=== PATIENT | male | born 1985 | race Two or more races ===

== ENCOUNTER 2019-10-02 12:12 | Inpatient (IN) | payer OTHER ==
[~2019-10-02] VITALS: Ht 167.6 cm; Wt 58.5 kg
--- NOTE | 2019-10-02 12:18 | Emergency Room Report ---
History of Present Illness General Chief Complaint: g-tube replacement Source: Medical Record, EMS Present Illness HPI Patient is a 34-year-old male brought in from his extended care facility by EMS for G-tube replacement. Per EMS patient ripped out his G-tube this morning. Unable to obtain further history due to the fact that the patient is in a persistent vegetative state. Allergies: Coded Allergies: GENTAMICIN (Verified Allergy, Intermediate, 10/02/19) PENICILLINS (Verified Allergy, Intermediate, 10/02/19) PHENYTOIN (Verified Allergy, Intermediate, 10/02/19) SHELLFISH DERIVED (Verified Allergy, Intermediate, 10/02/19) SULFA (SULFONAMIDE ANTIBIOTICS) (Verified Allergy, Intermediate, 10/02/19) CITRUS AND DERIVATIVES (Verified Allergy, Unknown, 10/02/19) PORK DERIVED (PORCINE) (Verified Allergy, Unknown, 10/02/19) Patient History Reviewed Nursing Documentation: PMH: Agreed; PSxH: Agreed Review of Systems All Other Systems: limited - non-verbal Physical Exam Sp02 EP Interpretation: reviewed, normal General Appearance: Chronically Ill Head: normocephalic, atraumatic Eyes: bilateral eye normal inspection, bilateral eye PERRL ENT: dry mucus membranes Neck: other - Trach in place Respiratory: other Cardiovascular #1: tachycardia Cardiovascular #2: 2+ carotid (R), 2+ carotid (L) Gastrointestinal: other - Catheter in place for PEG tube no abdominal pain on examination Rectal: deferred Musculoskeletal: other - Intractable extremities Psychiatric: other - Verbal unable to assess Skin: no rash Procedures Additional Procedure Procedure Narrative PEG tube replaced using 16 Macedonian G-tube inflated with 20 cc of normal saline x- ray ordered to confirm placement Medical Decision Making Diagnostic Impression: Primary Impression: UTI (urinary tract infection) Additional Impressions: Tachycardia Encounter for feeding tube placement Cardiomegaly Hypernatremia ER Course Patient presents for G-tube replacement. Patient found to be febrile with tachycardia. Patient found to have significant hyponatremia. Patient has been pancultured. Lactic acid is normal. Patient started on broad-spectrum antibiotics for UTI. Feeding tube replaced without any issues. Patient has primary care doctor Dr. Saxena. He states he will be out of town and is requesting the on-call physician to admit. I have discussed this with who will be admitting. Chest X-Ray Diagnostic Results Chest X-Ray Diagnostic Results : Chest X-Ray Ordered: Yes # of Views/Limited/Complete: 1 View Indication: Shortness of Breath EP Interpretation: Yes Interpretation: no consolidation, no effusion, no pneumothorax, other - Cardiomegaly Impression: No acute disease Electronically Signed by: Perla Noyola MD Other X-Ray Diagnostic Results Other X-Ray Diagnostic Results : X-Ray ordered: X-Ray abdomen # of Views/Limited Vs Complete: 1 View Indication: Other - G-tube replacement EP Interpretation: Yes Interpretation: nonspecific bowel gas, no sbo, other - Tube in satisfactory position Impression: No acute disease Electronically Signed by: Perla Noyola MD Disposition: ADMITTED INPATIENT Condition: Critical Physician Consult: Dr. Saxena and Dr. Jackson Scripts Vancomycin In Dextrose,Iso-Osm (VANCOMYCIN 750 MG/150 ML BAG) 750 Mg/150 Ml Froz.piggy 750 MG IVPB Q12H for 7 Days, BAG Prov: Jayden Jackson MD 10/06/19 Additional Instructions: Please note that this report is being documented using [employer] technology. This can lead to erroneous entry secondary to incorrect interpretation by the dictating instrument. Perla Noyola M.D. Oct 02, 2019 12:18
[2019-10-02] MEDS ORDERED: CARBAMAZEP100 MG/5 M GT (12:49)
[2019-10-02] MEDS ORDERED: ALBUTEROL2.5 MG/3 M INH (12:49)
[2019-10-02] MEDS ORDERED: CARDIZEM60 MG GT (12:49)
[2019-10-02] MEDS ORDERED: DOCUSATE SODIU100 MG GT (12:49)
[2019-10-02] MEDS ORDERED: IPRATROPIU0.2 MG/1 M HHN (12:49)
[2019-10-02] MEDS ORDERED: CARAFATE1 G1 GT (12:49)
[2019-10-02] MEDS ORDERED: LEVETIRACETAM500 MG GT (12:49)
[2019-10-02] MEDS ORDERED: LOVENOX10 M4 SUBQ (12:49)
[2019-10-02] MEDS ORDERED: VALPROIC A250 MG/5 M GT (12:49)
[2019-10-02 12:57] VITALS: BP 118/84
[2019-10-02 13:05] LABS: BASOPHILS % (AUTO) 0.9 % (0.0-2.0); EOSINOPHILS % (AUTO) 1.7 % (0.0-3.0); HEMATOCRIT 52.5 % (42.0-52.0); HEMOGLOBIN 16.4 G/DL (14.2-18.0); LYMPHOCYTES % (AUTO) 30.2 % (20.0-45.0); MEAN CORPUSCULAR VOLUME 96 FL (80-99); MONOCYTES % (AUTO) 3.9 % (1.0-10.0); NEUTROPHILS % (AUTO) 63.3 % (45.0-75.0); PLATELET COUNT 193 K/UL (150-450); RED BLOOD COUNT 5.47 M/UL (4.70-6.10); RED CELL DISTRIBUTION WIDTH 12.4 % (11.6-14.8); WHITE BLOOD COUNT 9.7 K/UL (4.8-10.8)
[2019-10-02 13:09] LABS: APPEARANCE,URINE SLIGHTLY CLOUDY; BILIRUBIN, URINE NEGATIVE (NEGATIVE); GLUCOSE, URINE (UA) NEGATIVE (NEGATIVE); KETONES,URINE NEGATIVE (NEGATIVE); LEUKOCYTE ESTERASE ,URINE 1+ (NEGATIVE); NITRITE,URINE NEGATIVE (NEGATIVE); PH,URINE 6.5 (4.5-8.0); PROTEIN,URINE 2+ (NEGATIVE); UROBILINOGEN,URINE 1 MG/DL (0.0-1.0)
[2019-10-02] MEDS ORDERED: Acetaminophen 650mg/20.3ml GT PRN (13:15)
[2019-10-02 13:17] LABS: COLOR,URINE YELLOW
[2019-10-02] MEDS ORDERED: Acetaminophen 650 MG SUPP RECTAL ONE ×2 (13:20→13:30)
[2019-10-02] MEDS ORDERED: Cefepime 2gm ONE (13:22)
[2019-10-02 13:23] LABS: ALANINE AMINOTRANSFERASE 67 U/L (12-78); ALBUMIN 3.2 G/DL (3.4-5.0); ALBUMIN/GLOBULIN RATIO 0.7 (1.0-2.7); ALKALINE PHOSPHATASE 58 U/L (46-116); ANION GAP 9 mmol/L (5-15); ASPARTATE AMINO TRANSFERASE 31 U/L (15-37); BILIRUBIN,TOTAL 0.3 MG/DL (0.2-1.0); BLOOD UREA NITROGEN 35 mg/dL (7-18); CALCIUM 9.5 MG/DL (8.5-10.1); CARBON DIOXIDE 30 MMOL/L (21-32); CHLORIDE 125 MMOL/L (98-107); CREATINE KINASE 72 U/L (26-308); CREATININE 0.6 MG/DL (0.55-1.30); POTASSIUM 4.1 MMOL/L (3.5-5.1)
[2019-10-02] MEDS ORDERED: Cefepime HCl 2 GM in D5W 55 ML IVPB ONE (13:30)
[2019-10-02 13:38] LABS: SODIUM 164 MMOL/L (136-145)
[2019-10-02] MEDS ORDERED: 1/2 NS 1000ml IV ONE (13:45)
--- NOTE | 2019-10-02 13:47 | Diagnostic Imaging Report ---
Indication: Chest pain Technique: One view of the chest Comparison: none Findings: The left hemidiaphragm is elevated. The heart is borderline enlarged. The lungs and pleural spaces are clear Impression: Cardiomegaly. No definite acute process
--- NOTE | 2019-10-02 14:19 | Emergency Room Report ---
History of Present Illness General Chief Complaint: General Complaint Source: Medical Record Present Illness Allergies: Coded Allergies: GENTAMICIN (Verified Allergy, Intermediate, 10/02/19) PENICILLINS (Verified Allergy, Intermediate, 10/02/19) PHENYTOIN (Verified Allergy, Intermediate, 10/02/19) SHELLFISH DERIVED (Verified Allergy, Intermediate, 10/02/19) SULFA (SULFONAMIDE ANTIBIOTICS) (Verified Allergy, Intermediate, 10/02/19) CITRUS AND DERIVATIVES (Verified Allergy, Unknown, 10/02/19) PORK DERIVED (PORCINE) (Verified Allergy, Unknown, 10/02/19) COVID-19 Screening Contact w/high risk pt: No Experienced COVID-19 symptoms?: Yes COVID-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 Nursing Documentation-PMH Hx Hypertension: Yes Hx COPD: Yes Hx Gastrointestinal Problems: Yes - gerd Physical Exam Vital Signs Date Time Temp Pulse Resp B/P (MAP) Pulse Ox O2 Delivery O2 Flow Rate FiO2 10/02/19 12:15 99.5 120 20 118/84 (95) 96 Nasal Cannula 4.0 Sp02 EP Interpretation: reviewed, normal General Appearance: mild distress, Chronically Ill Eyes: bilateral eye normal inspection, bilateral eye PERRL ENT: dry mucus membranes Neck: supple Respiratory: lungs clear, no respiratory distress Cardiovascular #1: tachycardia Cardiovascular #2: 2+ carotid (R), 2+ carotid (L) Gastrointestinal: non tender, other - Guthrie catheter in place of G-tube Rectal: deferred Musculoskeletal: other - Tract. Bilateral upper and lower extremities Skin: no rash Procedures Additional Procedure Procedure Narrative PEG tube replacement using 16 Czech G-tube chest x-ray ordered for placement verification Medical Decision Making Diagnostic Impression: Primary Impression: Hyponatremia Additional Impressions: UTI (urinary tract infection) G tube feedings ER Course Patient's G-tube has been replaced. Patient severely hyponatremic. Patient given IV fluids. Patient also has low-grade temp with UTI. Patient started on cefepime. Patient to be admitted for further treatment and evaluation. Laboratory Tests Test 10/02/19 12:35 White Blood Count 9.7 K/UL (4.8-10.8) Red Blood Count 5.47 M/UL (4.70-6.10) Hemoglobin 16.4 G/DL (14.2-18.0) Hematocrit 52.5 % (42.0-52.0) H Mean Corpuscular Volume 96 FL (80-99) Mean Corpuscular Hemoglobin 30.0 PG (27.0-31.0) Mean Corpuscular Hemoglobin Concent 31.3 G/DL (32.0-36.0) L Red Cell Distribution Width 12.4 % (11.6-14.8) Platelet Count 193 K/UL (150-450) Mean Platelet Volume 11.4 FL (6.5-10.1) H Neutrophils (%) (Auto) 63.3 % (45.0-75.0) Lymphocytes (%) (Auto) 30.2 % (20.0-45.0) Monocytes (%) (Auto) 3.9 % (1.0-10.0) Eosinophils (%) (Auto) 1.7 % (0.0-3.0) Basophils (%) (Auto) 0.9 % (0.0-2.0) Prothrombin Time 11.1 SEC (9.30-11.50) Prothrombin Time INR 1.0 (0.9-1.1) Activated Partial Thromboplast Time 34 SEC (23-33) H Urine Color Yellow Urine Appearance Slightly cloudy Urine pH 6.5 (4.5-8.0) Urine Specific [place] 1.015 (1.005-1.035) Urine Protein 2+ (NEGATIVE) H Urine Glucose (UA) Negative (NEGATIVE) Urine Ketones Negative (NEGATIVE) Urine Blood 4+ (NEGATIVE) H Urine Nitrite Negative (NEGATIVE) Urine Bilirubin Negative (NEGATIVE) Urine Urobilinogen 1 MG/DL (0.0-1.0) H Urine Leukocyte Esterase 1+ (NEGATIVE) H Urine RBC 30-40 /HPF (0 - 0) H Urine WBC 5-10 /HPF (0 - 0) H Urine Squamous Epithelial Cells Occasional /LPF Urine Bacteria Moderate /HPF (NONE) H Urine Mucus Moderate /LPF (NONE/OCC) H Sodium Level 164 MMOL/L (136-145) *H Potassium Level 4.1 MMOL/L (3.5-5.1) Chloride Level 125 MMOL/L (98-107) H Carbon Dioxide Level 30 MMOL/L (21-32) Anion Gap 9 mmol/L (5-15) Blood Urea Nitrogen 35 mg/dL (7-18) H Creatinine 0.6 MG/DL (0.55-1.30) Estimated Glomerular Filtration Rate > 60 mL/min (>60) Glucose Level 122 MG/DL (74-106) H Lactic Acid Level 1.00 mmol/L (0.4-2.0) Calcium Level 9.5 MG/DL (8.5-10.1) Magnesium Level 2.8 MG/DL (1.8-2.4) H Total Bilirubin 0.3 MG/DL (0.2-1.0) Aspartate Amino Transferase (AST) 31 U/L (15-37) Alanine Aminotransferase (ALT) 67 U/L (12-78) Alkaline Phosphatase 58 U/L (46-116) Total Creatine Kinase 72 U/L (26-308) Total Protein 7.7 G/DL (6.4-8.2) Albumin 3.2 G/DL (3.4-5.0) L Globulin 4.5 g/dL Albumin/Globulin Ratio 0.7 (1.0-2.7) L EKG Diagnostic Results EKG Time: 12:39 EP Interpretation: Perla Noyola MD Rate: tachycardiac Rhythm: other - Sinus tachycardia ST Segments: no acute changes ASA given to the pt in ED: No Chest X-Ray Diagnostic Results Chest X-Ray Diagnostic Results : Chest X-Ray Ordered: Yes # of Views/Limited/Complete: 1 View Indication: Other - Cardia EP Interpretation: Yes Interpretation: no consolidation, no effusion, no pneumothorax, no acute cardiopulmonary disease, other - cardiomegaly Impression: No acute disease Electronically Signed by: Perla Noyola MD Last Vital Signs Date Time Temp Pulse Resp B/P (MAP) Pulse Ox O2 Delivery O2 Flow Rate FiO2 10/02/19 12:57 120 20 Nasal Cannula 4.0 10/02/19 12:57 99.5 118/84 96 Disposition: ADMITTED INPATIENT - telemetry Condition: Critical Physician Consult: MD Hemanth Referrals: Omero Saxena MD (PCP) Perla Noyola M.D. Oct 02, 2019 14:19
--- NOTE | 2019-10-02 16:12 | Diagnostic Imaging Report ---
Indication: Status post gastrostomy replacement Technique: Supine view of the abdomen after injection of water-soluble contrast into gastrostomy Comparison: none Findings: Contrast opacifies the stomach. No contrast extravasation is demonstrated. The bowel gas pattern is unremarkable. There is thoracolumbar scoliotic deformity Impression: Satisfactory position of gastrostomy tube
[2019-10-02] MEDS ORDERED: Albuterol ud Inhalation HHN PRN (17:30)
[2019-10-02] MEDS: Valproic Acid 250mg/5ml Liquid GT SCH ×2 (18:00→18:46)
[2019-10-02] MEDS: carBAMazepine 200mg tab GT SCH (18:43)
[2019-10-02] MEDS: Sucralfate 1gm tab GT SCH ×2 (18:43→22:35)
[2019-10-02] MEDS: levETIRAcetam 500mg/5ml Liquid GT SCH (18:43)
[2019-10-02] MEDS: dilTIAZem HCl 60mg tab GT SCH (18:44)
[2019-10-02] MEDS: Docusate 100mg/10ml Liq GT SCH (18:44)
[2019-10-02 20:00] VITALS: BP 137/80
[2019-10-02] MEDS ORDERED: Vancomycin 1.25gm/NS Premix IVPB ONE (20:00)
[2019-10-02] MEDS ORDERED: LORazepam Inj 2mg/ml 1ml IV PRN (21:00)
[2019-10-02] MEDS: Cefepime HCl 1 GM in D5W 55 ML IVPB SCH (22:39)
[2019-10-02 23:13] LABS: BASOPHILS % (AUTO) 0.6 % (0.0-2.0); EOSINOPHILS % (AUTO) 1.6 % (0.0-3.0); HEMATOCRIT 53.2 % (42.0-52.0); HEMOGLOBIN 16.4 G/DL (14.2-18.0); LYMPHOCYTES % (AUTO) 30.2 % (20.0-45.0); MEAN CORPUSCULAR VOLUME 97 FL (80-99); MONOCYTES % (AUTO) 4.3 % (1.0-10.0); NEUTROPHILS % (AUTO) 63.4 % (45.0-75.0); PLATELET COUNT 203 K/UL (150-450); RED BLOOD COUNT 5.47 M/UL (4.70-6.10); RED CELL DISTRIBUTION WIDTH 13.4 % (11.6-14.8); WHITE BLOOD COUNT 9.4 K/UL (4.8-10.8)
[2019-10-02 23:36] VITALS: BP 101/43
[2019-10-03] VITALS: BP 142/91
[2019-10-03] MEDS: dilTIAZem HCl 60mg tab GT SCH ×4 (01:40→18:00)
[2019-10-03 04:00] VITALS: BP 126/82
[2019-10-03 08:00] VITALS: BP 122/80
[2019-10-03] MEDS: Valproic Acid 250mg/5ml Liquid GT SCH ×2 (08:56→20:24)
[2019-10-03] MEDS: levETIRAcetam 500mg/5ml Liquid GT SCH ×2 (08:56→18:26)
[2019-10-03] MEDS: Enoxaparin 40mg Inj SUBQ SCH (08:57)
[2019-10-03] MEDS: Sucralfate 1gm tab GT SCH ×4 (08:58→20:23)
[2019-10-03] MEDS: carBAMazepine 200mg tab GT SCH ×2 (08:59→18:25)
[2019-10-03] MEDS: Docusate 100mg/10ml Liq GT SCH ×2 (09:14→18:00)
[2019-10-03] MEDS: Cefepime HCl 1 GM in D5W 55 ML IVPB SCH ×2 (09:16→20:24)
[2019-10-03] MEDS: Vancomycin 1gm/D5W 275ml IVPB SCH ×4 (09:16→21:56)
[2019-10-03 09:20] LABS: ALANINE AMINOTRANSFERASE 53 U/L (12-78); ALBUMIN 2.8 G/DL (3.4-5.0); ALBUMIN/GLOBULIN RATIO 0.9 (1.0-2.7); ALKALINE PHOSPHATASE 56 U/L (46-116); ANION GAP 11 mmol/L (5-15); ASPARTATE AMINO TRANSFERASE 36 U/L (15-37); BILIRUBIN,TOTAL 0.4 MG/DL (0.2-1.0); BLOOD UREA NITROGEN 31 mg/dL (7-18); CALCIUM 7.5 MG/DL (8.5-10.1); CARBON DIOXIDE 26 MMOL/L (21-32); CHLORIDE 121 MMOL/L (98-107); CREATININE 0.3 MG/DL (0.55-1.30); POTASSIUM 4.2 MMOL/L (3.5-5.1); SODIUM 158 MMOL/L (136-145)
[2019-10-03 12:00] VITALS: BP 114/72
--- NOTE | 2019-10-03 13:15 | History and Physical Report ---
DATE OF ADMISSION: 10/02/2019 HISTORY OF PRESENT ILLNESS: This is a 34-year-old male with a history of persistent vegetative state, who was transferred from a longterm facility after his G-tube was pulled out. It was replaced in the emergency room, but on his labs, he was noted to be significantly dehydrated with a sodium of 164. In light of his significant electrolyte abnormalities, he is now admitted for further evaluation and care. PAST MEDICAL HISTORY: As above. PAST SURGICAL HISTORY: Includes a prior history of a G-tube. CURRENT MEDICATIONS: Reconciled and reviewed. ALLERGIES: Include , penicillin, phenytoin, pork, shellfish, and sulfa. FAMILY HISTORY: Unknown. SOCIAL HISTORY: There is no known history of tobacco, ethanol, or drugs. REVIEW OF SYSTEMS: From the patient is unobtainable, is nonverbal at baseline. PHYSICAL EXAMINATION: VITAL SIGNS: Temperature 97.6, pulse 111, respirations 26, blood pressure 142/91. GENERAL: The patient is a chronically ill-appearing male, in no apparent distress. HEENT: Head is normocephalic, atraumatic. HEART: Regular rate and rhythm. LUNGS: Clear. ABDOMEN: Soft. EXTREMITIES: Without clubbing or cyanosis. LABORATORY DATA: Reviewed. ASSESSMENT: This is an unfortunate 34-year-old male with a history of persistent vegetative state, G-tube, admitted with a dislodged G-tube, now replaced. He will be hydrated aggressively. We will continue on G-tube feeds. We will flush G-tube with water. The patient can be discharged once the electrolyte abnormalities are corrected. Jayden Jackson M.D. DR: KASIE JOB#: [id number] CC:
[2019-10-03 16:00] VITALS: BP 98/56
[2019-10-03 20:00] VITALS: BP 98/61
[2019-10-04] VITALS: BP 96/56
[2019-10-04] MEDS: dilTIAZem HCl 60mg tab GT SCH ×4 (00:50→18:00)
[2019-10-04 04:00] VITALS: BP 95/59
[2019-10-04 08:00] VITALS: BP 106/65
[2019-10-04] MEDS: carBAMazepine 200mg tab GT SCH ×2 (08:31→18:05)
[2019-10-04] MEDS: Sucralfate 1gm tab GT SCH ×4 (08:31→20:12)
[2019-10-04] MEDS: Valproic Acid 250mg/5ml Liquid GT SCH ×2 (08:31→20:12)
[2019-10-04] MEDS: levETIRAcetam 500mg/5ml Liquid GT SCH ×2 (08:31→18:04)
[2019-10-04] MEDS: Docusate 100mg/10ml Liq GT SCH ×2 (08:31→18:04)
[2019-10-04] MEDS: Enoxaparin 40mg Inj SUBQ SCH (08:32)
[2019-10-04] MEDS: Cefepime HCl 1 GM in D5W 55 ML IVPB SCH ×2 (08:33→20:12)
[2019-10-04] MEDS: Vancomycin 1gm/D5W 275ml IVPB SCH ×4 (09:00→21:01)
[2019-10-04 12:00] VITALS: BP 131/77
[2019-10-04 12:07] LABS: ANION GAP 7 mmol/L (5-15); BLOOD UREA NITROGEN 15 mg/dL (7-18); CALCIUM 8.4 MG/DL (8.5-10.1); CARBON DIOXIDE 30 MMOL/L (21-32); CHLORIDE 111 MMOL/L (98-107); CREATININE 0.5 MG/DL (0.55-1.30); POTASSIUM 3.2 MMOL/L (3.5-5.1); SODIUM 148 MMOL/L (136-145)
--- NOTE | 2019-10-04 12:22 | General Progress Note ---
Assessment/Plan Problem List: (1) Sepsis ICD Codes: A41.9 - Sepsis, unspecified organism SNOMED: 93818295 (2) G tube feedings ICD Codes: Z93.1 - Gastrostomy status SNOMED: 177849971, 489010409, 638296055 (3) UTI (urinary tract infection) ICD Codes: N39.0 - Urinary tract infection, site not specified SNOMED: 53368608 Status: stable Assessment/Plan: decrease ivf tube feeds iv abx follow up cultures monitor labs Subjective ROS Limited/Unobtainable: Yes Constitutional: Reports: malaise, weakness HEENT: Reports: no symptoms Cardiovascular: Reports: no symptoms Respiratory: Reports: no symptoms Gastrointestinal/Abdominal: Reports: difficulty swallowing Genitourinary: Reports: no symptoms Neurologic/Psychiatric: Reports: pre-existing deficit Endocrine: Reports: no symptoms Hematologic/Lymphatic: Reports: no symptoms Allergies: Coded Allergies: GENTAMICIN (Verified Allergy, Intermediate, 10/02/19) PENICILLINS (Verified Allergy, Intermediate, 10/02/19) PHENYTOIN (Verified Allergy, Intermediate, 10/02/19) SHELLFISH DERIVED (Verified Allergy, Intermediate, 10/02/19) SULFA (SULFONAMIDE ANTIBIOTICS) (Verified Allergy, Intermediate, 10/02/19) CITRUS AND DERIVATIVES (Verified Allergy, Unknown, 10/02/19) PORK DERIVED (PORCINE) (Verified Allergy, Unknown, 10/02/19) All Systems: reviewed and negative except above Subjective no events. labs improving. tolerating feeds. + ucx and blood cultures. Objective Last 24 Hour Vital Signs Date Time Temp Pulse Resp B/P (MAP) Pulse Ox O2 Delivery O2 Flow Rate FiO2 10/04/19 08:00 106 10/04/19 08:00 98.1 97 22 106/65 (79) 99 10/04/19 05:48 79 95/59 10/04/19 04:00 98.6 79 18 95/59 (71) 95 10/04/19 04:00 108 10/04/19 00:50 86 96/56 10/04/19 00:00 87 10/04/19 00:00 99.9 86 18 96/56 (69) 95 10/03/19 22:00 97.9 10/03/19 21:00 Nasal Cannula 2.0 10/03/19 20:00 100.8 104 22 98/61 (73) 99 10/03/19 20:00 99 10/03/19 19:40 76 18 98 Nasal Cannula 2.0 28 10/03/19 18:55 98.8 10/03/19 18:00 116 98/56 10/03/19 16:00 116 10/03/19 16:00 98.8 104 22 98/56 (70) 95 Intake and Output 10/03/19 10/04/19 19:00 07:00 Intake Total 1645 ml 1680 ml Output Total 600 ml 250 ml Balance 1045 ml 1430 ml Intake Free Water 100 ml IV Total 1445 ml 1330 ml Tube Feeding 200 ml 250 ml Output Urine Total 600 ml 250 ml # Voids 2 # Bowel Movements 1 Laboratory Tests 10/04/19 11:10: Sodium Level 148H, Potassium Level 3.2L, Chloride Level 111H, Carbon Dioxide Level 30, Anion Gap 7, Blood Urea Nitrogen 15, Creatinine 0.5#L, Estimat Glomerular Filtration Rate > 60, Glucose Level 107H, Calcium Level 8.4L, Vancomycin Level Trough [Pending] Height (Feet): 5 Height (Inches): 6.00 Weight (Pounds): 129 General Appearance: WD/WN, confused Cardiovascular: regular rhythm Respiratory/Chest: lungs clear Abdomen: normal bowel sounds, non tender, soft, no organomegaly Edema: no edema noted Arm (L), no edema noted Arm (R), no edema noted Leg (L), no edema noted Leg (R), no edema noted Pedal (L), no edema noted Pedal (R), no edema noted Generalized Neurologic: unresponsive, aphasia Jayden Jackson MD Oct 04, 2019 12:22
[2019-10-04 16:00] VITALS: BP 105/67
[2019-10-04 20:00] VITALS: BP 115/79
[2019-10-05] VITALS: BP 116/62
[2019-10-05] MEDS: dilTIAZem HCl 60mg tab GT SCH ×4 (01:10→17:35)
[2019-10-05 04:00] VITALS: BP 110/78
[2019-10-05 08:00] VITALS: BP 112/80
[2019-10-05] MEDS: carBAMazepine 200mg tab GT SCH ×2 (08:40→17:32)
[2019-10-05] MEDS: Valproic Acid 250mg/5ml Liquid GT SCH ×2 (08:40→20:26)
[2019-10-05] MEDS: levETIRAcetam 500mg/5ml Liquid GT SCH ×2 (08:40→17:32)
[2019-10-05] MEDS: Vancomycin 1gm/D5W 275ml IVPB SCH ×4 (08:40→20:25)
[2019-10-05] MEDS: Enoxaparin 40mg Inj SUBQ SCH (08:41)
[2019-10-05] MEDS: Sucralfate 1gm tab GT SCH ×4 (08:46→20:25)
[2019-10-05] MEDS: Docusate 100mg/10ml Liq GT SCH ×2 (08:46→17:35)
[2019-10-05] MEDS: Cefepime HCl 1 GM in D5W 55 ML IVPB SCH ×2 (09:37→20:28)
--- NOTE | 2019-10-05 09:48 | General Progress Note ---
Assessment/Plan Problem List: (1) Sepsis ICD Codes: A41.9 - Sepsis, unspecified organism SNOMED: 67605596 (2) G tube feedings ICD Codes: Z93.1 - Gastrostomy status SNOMED: 033466573, 972637200, 387919585 (3) UTI (urinary tract infection) ICD Codes: N39.0 - Urinary tract infection, site not specified SNOMED: 10940899 Status: stable Assessment/Plan: ivf tube feeds iv abx follow up cultures monitor labs Subjective ROS Limited/Unobtainable: No Constitutional: Reports: malaise, weakness HEENT: Reports: no symptoms Cardiovascular: Reports: no symptoms Respiratory: Reports: no symptoms Gastrointestinal/Abdominal: Reports: no symptoms Genitourinary: Reports: no symptoms Neurologic/Psychiatric: Reports: pre-existing deficit Endocrine: Reports: no symptoms Hematologic/Lymphatic: Reports: no symptoms Allergies: Coded Allergies: GENTAMICIN (Verified Allergy, Intermediate, 10/02/19) PENICILLINS (Verified Allergy, Intermediate, 10/02/19) PHENYTOIN (Verified Allergy, Intermediate, 10/02/19) SHELLFISH DERIVED (Verified Allergy, Intermediate, 10/02/19) SULFA (SULFONAMIDE ANTIBIOTICS) (Verified Allergy, Intermediate, 10/02/19) CITRUS AND DERIVATIVES (Verified Allergy, Unknown, 10/02/19) PORK DERIVED (PORCINE) (Verified Allergy, Unknown, 10/02/19) All Systems: reviewed and negative except above Subjective no events. labs improving. tolerating feeds. + ucx and blood cultures. Objective Last 24 Hour Vital Signs Date Time Temp Pulse Resp B/P (MAP) Pulse Ox O2 Delivery O2 Flow Rate FiO2 10/05/19 08:00 98.1 107 20 112/80 (91) 96 10/05/19 06:00 76 110/78 10/05/19 04:00 85 10/05/19 04:00 97.5 76 18 110/78 (89) 96 10/05/19 01:10 84 116/62 10/05/19 00:00 96 10/05/19 00:00 99.3 84 18 116/62 (80) 100 10/04/19 21:00 Nasal Cannula 2.0 10/04/19 20:00 98.4 101 18 115/79 (91) 95 10/04/19 20:00 94 10/04/19 18:00 100 105/67 10/04/19 16:00 97.7 92 22 105/67 (80) 97 10/04/19 16:00 100 10/04/19 12:46 100 131/77 10/04/19 12:00 97.7 100 20 131/77 (95) 99 10/04/19 12:00 96 Intake and Output 10/04/19 10/05/19 19:00 07:00 Intake Total 1519.25 ml 1615 ml Output Total 600 ml 300 ml Balance 919.25 ml 1315 ml Intake Free Water 25 ml 200 ml IV Total 1334.25 ml 1055 ml Tube Feeding 160 ml 360 ml Output Urine Total 600 ml 300 ml # Voids 2 3 Laboratory Tests 10/04/19 11:10: Sodium Level 148H, Potassium Level 3.2L, Chloride Level 111H, Carbon Dioxide Level 30, Anion Gap 7, Blood Urea Nitrogen 15, Creatinine 0.5#L, Estimat Glomerular Filtration Rate > 60, Glucose Level 107H, Calcium Level 8.4L, Vancomycin Level Trough 16.8H Height (Feet): 5 Height (Inches): 6.00 Weight (Pounds): 129 Objective General Appearance: WD/WN, confused Cardiovascular: regular rhythm Respiratory/Chest: lungs clear Abdomen: normal bowel sounds, non tender, soft, no organomegaly Edema: no edema noted Arm (L), no edema noted Arm (R), no edema noted Leg (L), no edema noted Leg (R), no edema noted Pedal (L), no edema noted Pedal (R), no edema noted Generalized Neurologic: unresponsive, aphasia Jayden Jackson MD Oct 05, 2019 09:48
[2019-10-05 11:57] VITALS: BP 158/85
[2019-10-05 12:38] LABS: ALANINE AMINOTRANSFERASE 55 U/L (12-78); ALBUMIN 2.6 G/DL (3.4-5.0); ALBUMIN/GLOBULIN RATIO 0.7 (1.0-2.7); ALKALINE PHOSPHATASE 61 U/L (46-116); ANION GAP 8 mmol/L (5-15); ASPARTATE AMINO TRANSFERASE 34 U/L (15-37); BILIRUBIN,TOTAL 0.2 MG/DL (0.2-1.0); BLOOD UREA NITROGEN 7 mg/dL (7-18); CALCIUM 8.4 MG/DL (8.5-10.1); CARBON DIOXIDE 29 MMOL/L (21-32); CHLORIDE 106 MMOL/L (98-107); CREATININE 0.4 MG/DL (0.55-1.30); POTASSIUM 3.4 MMOL/L (3.5-5.1); SODIUM 143 MMOL/L (136-145)
[2019-10-05 16:00] VITALS: BP 110/73
[2019-10-05 20:00] VITALS: BP 115/77
[2019-10-06] VITALS: BP 129/77
[2019-10-06] MEDS: dilTIAZem HCl 60mg tab GT SCH ×3 (00:11→12:27)
[2019-10-06 04:00] VITALS: BP 113/70
[2019-10-06] MEDS ORDERED: VANCOMYCIN750 MG/150 IVPB (06:56)
[2019-10-06 07:03] LABS: BASOPHILS % (AUTO) 0.6 % (0.0-2.0); EOSINOPHILS % (AUTO) 3.9 % (0.0-3.0); HEMATOCRIT 35.5 % (42.0-52.0); HEMOGLOBIN 11.8 G/DL (14.2-18.0); LYMPHOCYTES % (AUTO) 34.7 % (20.0-45.0); MEAN CORPUSCULAR VOLUME 91 FL (80-99); MONOCYTES % (AUTO) 5.7 % (1.0-10.0); NEUTROPHILS % (AUTO) 55.1 % (45.0-75.0); PLATELET COUNT 180 K/UL (150-450); RED CELL DISTRIBUTION WIDTH 11.4 % (11.6-14.8); WHITE BLOOD COUNT 3.8 K/UL (4.8-10.8)
[2019-10-06 07:27] LABS: ALANINE AMINOTRANSFERASE 110 U/L (12-78); ALBUMIN 2.6 G/DL (3.4-5.0); ALBUMIN/GLOBULIN RATIO 0.8 (1.0-2.7); ALKALINE PHOSPHATASE 68 U/L (46-116); ANION GAP 7 mmol/L (5-15); ASPARTATE AMINO TRANSFERASE 87 U/L (15-37); BILIRUBIN,TOTAL 0.1 MG/DL (0.2-1.0); BLOOD UREA NITROGEN 6 mg/dL (7-18); CARBON DIOXIDE 27 MMOL/L (21-32); CHLORIDE 108 MMOL/L (98-107); CREATININE 0.4 MG/DL (0.55-1.30); POTASSIUM 4.1 MMOL/L (3.5-5.1); SODIUM 142 MMOL/L (136-145)
[2019-10-06 08:00] VITALS: BP 107/54
--- NOTE | 2019-10-06 08:00 | Discharge Summary ---
DATE OF ADMISSION: 10/02/2019 DATE OF DISCHARGE: 10/06/2019 ADMISSION DIAGNOSES: 1. History of encephalopathy. 2. Chronic vegetative state. 3. History of dysphagia and G-tube. 4. Seizure disorder. DISCHARGE DIAGNOSES: 1. History of encephalopathy. 2. Chronic vegetative state. 3. History of dysphagia and G-tube. 4. Seizure disorder. HOSPITAL COURSE: The patient is an unfortunate male, who was admitted with a dislodged G-tube, he was sent, it was replaced. The labs show significant dehydration and hypernatremia. He also had a leukocytosis and low-grade fever. He received intravenous antibiotics. Urine cultures grew out less than 10,000 gram-negative rods. His blood cultures grew out Staph. It is unclear whether or not this is a true infection or contaminant. I suspect that it is likely a contaminant. Regardless the patient will be treated with seven more days of IV vancomycin at the [facility] facility. DISCHARGE MEDICATIONS: Please see discharge medication list for discharge medications. DIET: G-tube feedings. ACTIVITY: Ad leola. Jayden Jackson M.D. DR: KASIE JOB#: [id number] CC:
[2019-10-06] MEDS: Vancomycin 1gm/D5W 275ml IVPB SCH ×2 (08:52)
[2019-10-06] MEDS: Cefepime HCl 1 GM in D5W 55 ML IVPB SCH (08:53)
[2019-10-06] MEDS: Sucralfate 1gm tab GT SCH ×2 (08:54→12:30)
[2019-10-06] MEDS: Docusate 100mg/10ml Liq GT SCH (08:54)
[2019-10-06] MEDS: levETIRAcetam 500mg/5ml Liquid GT SCH (08:54)
[2019-10-06] MEDS: carBAMazepine 200mg tab GT SCH (08:54)
[2019-10-06] MEDS: Valproic Acid 250mg/5ml Liquid GT SCH (08:54)
[2019-10-06] MEDS: Enoxaparin 40mg Inj SUBQ SCH (09:01)
--- NOTE | 2019-10-06 10:27 | CDS Physician Query ---
Clarification is required for compliance, coding accuracy, and to reflect severity of illness for this patient Dear Dr. Jayden Jackson M.D. Date: 10/06/19 CDI/CDS Name: Atul Vasquez Clinical Documentation Statement: "34-year-old male with a history of persistent vegetative state, who was transferred from a [facility] facility after his G-tube was pulled out. It was replaced in the emergency room, but on his labs, he was noted to be significantly dehydrated with a sodium of 164. " [ H&P Jayden Jackson M.D. 10/02] DISCHARGE DIAGNOSES: 1. History of encephalopathy. 2. Chronic vegetative state. 3. History of dysphagia and G-tube. 4. Seizure disorder. DIET: G-tube feedings Clinical Finding Show: BMI: 20.8kg/m2 LAB (10/01) : Chem: Albumin 3.2 [3.4-5.0], Calcium 9.5 [ 8.5-10.1] Please select the most appropriate option: [x] Protein/Calorie Malnutrition [x] Mild [] Moderate [] Severe [] Other [] Unable to determine [] Not Applicable Present on Admission: [x] Yes [] No [] Clinically Undetermined Physician signature Date Please also document in your Progress Notes and/or Discharge Summary and indicate if the condition was present on admission. MTDD
[2019-10-06 12:00] VITALS: BP 121/82
[2019-10-06 12:27] VITALS: BP 121/82
== END 2019-10-06 13:00 | DRG 252 ==
LOC: EDBD 12:12 → EDBEDREQ 12:34 → EMR 13:04 → 2E 13:44 → OBSVTOIN 13:44 → EDBEDREQ 13:46 → EDBEDREQSVC 13:46 → EDBEDREQ 14:12 → 2E 20:11
PROC: 0D20XUZ Change Feeding Device in Upper Intestinal Tract, External Approach (ICD-10-PCS; principal; 2019-10-02)
DX: K94.23 Gastrostomy malfunction (principal); R40.3 Persistent vegetative state; E87.0 Hyperosmolality and hypernatremia; N39.0 Urinary tract infection, site not specified; E44.1 Mild protein-calorie malnutrition; E86.0 Dehydration; G40.909 Epilepsy, unspecified, not intractable, without status epilepticus; R13.10 Dysphagia, unspecified; Z88.1 Allergy status to other antibiotic agents; Z88.2 Allergy status to sulfonamides; Z88.8 Allergy status to other drugs, medicaments and biological substances; Y83.3 Surgical operation with formation of external stoma as the cause of abnormal reaction of the patient, or of later complication, without mention of misadventure at the time of the procedure; Z68.20 Body mass index [BMI] 20.0-20.9, adult
CPT/HCPCS: 36415; 71045; 74018; 80048; 80053; 80202; 81003; 82550; 82962; 83605; 83735; 85025; 85610; 85730; 86850; 86900; 86901; 87040; 87081; 87086; 87181; 93005; 94664; 96361; 96365; 99285; J8499; U0002